=== PATIENT | female | born 1960 | race Asian ===

== ENCOUNTER → 2016-12-18 | Outpatient (CLI) | payer BC | END | disposition home or self-care (01) | LOC: C.PAPS 11:26 | PROVIDERS: ATTEND Obstetrics & Gynecology | DX: R87.810 Cervical high risk human papillomavirus (HPV) DNA test positive (principal); R87.610 Atypical squamous cells of undetermined significance on cytologic smear of cervix (ASC-US) ==

== ENCOUNTER → 2017-07-12 | Outpatient (CLI) | payer OTHER ==
--- NOTE | 2017-07-12 10:31 | DIAGNOSTIC IMAGING REPORT ---
THYROID ULTRASONOGRAPHY CLINICAL HISTORY: NON TOXIC SINGLE THYROID NODULE COMPARISON STUDY: January 2015 FINDINGS: The right lobe measures 48 x 17 x 16 mm. Left lobe measures 46 x 16 x 18 mm. There is a bilobed versus tangential lower pole nodule measuring 17 x 8 x 9 mm. This nodule size nodule is hypoechoic, circumscribed, and wider than tall. This remains unchanged in size from the prior January 2015 study. IMPRESSION: Stable bilobed versus tangential lower pole left lobe nodules measuring 17 x 9 x 8 mm in aggregate. Electronically signed by: Gerardo Franco M.D. 07/12/2017 10:30 AM Dictated Date/Time: 07/12/2017 10:28 AM
== END | disposition home or self-care (01) ==
LOC: C.ULTR 10:00
PROVIDERS: ATTEND Family Medicine
DX: E04.1 Nontoxic single thyroid nodule (principal)